=== PATIENT | female | born 1990 | race Caucasian/White ===

== ENCOUNTER → 2023-09-10 12:00 | Outpatient (CLI) | payer BC, SELFPAY ==
[2023-09-10 18:34] LABS: Basophils # 0.1 K/mm3 (0-0.2); Basophils % 0.6 % (0.1-2.0); Eosinophils # 0.4 K/mm3 (0.0-0.4); Eosinophils % 4.1 % (0.1-12.0); Hematocrit 43.4 % (37.0-47.0); Hemoglobin 14.5 g/dL (12.2-16.2); Lymphocytes # 2.9 K/mm3 (0.7-4.5); Lymphocytes % 32.7 % (10-50); Mean Corpuscular HGB Conc 33.5 g/dL (31.8-35.4); Mean Corpuscular Hemoglobin 31.8 pg (27.0-31.2); Mean Corpuscular Volume 94.9 fl (81-99); Mean Platelet Volume 8.5 fl (7.4-10.4); Monocytes # 0.6 K/mm3 (0.1-1.0); Monocytes % 6.4 % (1.7-9.3); Neutrophils % 56.2 % (37.0-80.0); Platelet Count 321 K/mm3 (142-424); Red Blood Count 4.57 M/mm3 (4.20-5.40); Red Cell Distribution Width 12.9 % (11.5-17.5); White Blood Count 8.8 K/mm3 (4.8-10.8)
[2023-09-10 18:44] LABS: Alanine Aminotransferase 21 U/L (12-78); Albumin Level 4.5 g/dl (3.5-5.0); Albumin/Globulin Ratio 1.4 (1.1-1.8); Alkaline Phosphatase 67 U/L (38-126); Anion Gap 12.1 mEq/L (5-15); Aspartate Amino Transferase 34 U/L (14-36); Bilirubin,Total 0.5 mg/dl (0.2-1.3); Blood Urea Nitrogen 8 mg/dl (7-17); Calcium 9.3 mg/dl (8.4-10.2); Carbon Dioxide 24 mmol/L (22.0-30.0); Chloride 105 mmol/L (98-107); Cholesterol 256 mg/dl (140-200); Estimated Glomerular Filt Rate 71 ml/min (>60); GFR (African American) 86 ML/MIN (>60); Globulin 3.3 g/dL (1.3-3.2); Glucose 88 mg/dl (74-100); Potassium 4.1 mmoL/L (3.5-5.1); Sodium 137 mmol/L (136-145); Total Protein,Serum 7.8 g/dl (6.3-8.2); Triglycerides 77 mg/dl (30-150); VLDL Cholesterol 15 mg/dL (0-40)
[2023-09-10 18:52] LABS: Chol/HDL Ratio 2.4 (1-3.5); HDL Cholesterol 108 mg/dl (40-60)
[2023-09-10 18:56] LABS: Direct LDL Cholesterol 120.32 mg/dL (100-129)
[2023-09-10 19:01] LABS: Free T4 (Free Thyroxine) 1.17 ng/dl (0.78-2.19)
[2023-09-10 19:02] LABS: 25-OH Vitamin D, Total 52.1 ng/mL (30-100)
[2023-09-10 19:34] LABS: Vitamin B12 643 pg/mL (239-931)
[2023-09-10 20:43] LABS: Hemoglobin A1C 4.8 % (4.0-6.0)
== END ==
PROVIDERS: PCP Nurse Practitioner Family; Visit Provider Nurse Practitioner Family
DX: F41.9 Anxiety disorder, unspecified (principal); R53.83 Other fatigue; Z13.220 Encounter for screening for lipoid disorders; Z13.1 Encounter for screening for diabetes mellitus; Z79.899 Other long term (current) drug therapy
CPT/HCPCS: 80053; 80061; 82306; 82607; 83036; 84439; 84443; 85025

== ENCOUNTER → 2023-10-01 12:06 | Outpatient (CLI) | payer BC, SELFPAY ==
[2023-10-01 12:28] LABS: Basophils # 0.1 K/mm3 (0-0.2); Basophils % 0.6 % (0.1-2.0); Eosinophils # 0.2 K/mm3 (0.0-0.4); Eosinophils % 2.2 % (0.1-12.0); Hematocrit 41.8 % (37.0-47.0); Hemoglobin 14.1 g/dL (12.2-16.2); Lymphocytes # 2.3 K/mm3 (0.7-4.5); Mean Corpuscular HGB Conc 33.8 g/dL (31.8-35.4); Mean Corpuscular Hemoglobin 31.1 pg (27.0-31.2); Mean Platelet Volume 7.9 fl (7.4-10.4); Monocytes # 0.4 K/mm3 (0.1-1.0); Monocytes % 4.9 % (1.7-9.3); Neutrophils # 6.1 K/mm3 (1.8-7.8); Neutrophils % 67.3 % (37.0-80.0); Platelet Count 306 K/mm3 (142-424); Red Blood Count 4.54 M/mm3 (4.20-5.40); Red Cell Distribution Width 12.6 % (11.5-17.5)
[2023-10-01 12:34] LABS: Activated Partial Thrombo Time 26.8 seconds (22.8-30.6); INR 0.97 (0.9-1.1); Prothrombin Time 10.5 seconds (10.1-12.5)
[2023-10-01 13:08] LABS: Blood Urea Nitrogen 10 mg/dl (7-17); Calcium 9.2 mg/dl (8.4-10.2); Carbon Dioxide 23 mmol/L (22.0-30.0); Chloride 105 mmol/L (98-107); Estimated Glomerular Filt Rate 63 ml/min (>60); GFR (African American) 76 ML/MIN (>60); Glucose 83 mg/dl (74-100); Sodium 136 mmol/L (136-145)
== END ==
LOC: LAB 12:07
PROVIDERS: PCP Nurse Practitioner Family; Referring Provider Plastic Surgery; Visit Provider Plastic Surgery
DX: Z01.812 Encounter for preprocedural laboratory examination (principal)
CPT/HCPCS: 36415; 80048; 85025; 85610; 85730

== ENCOUNTER 2024-03-17 13:45 | Emergency (ER) | payer BC, SELFPAY ==
[2024-03-17 13:50] VITALS: BP 125/76; PULSE 80; RESP 20; TEMP 36.6; O2SAT 97; BMI 23.8
--- NOTE | 2024-03-17 13:57 | EXP.UTC ---
Discharge Plan Disposition Patient Disposition: Home, Self-Care Condition: Good Prescriptions Prescriptions: New azithromycin 250 mg tablet See Rx Instructions .ROUTE .COMPLEX Qty: 6 0RF Rx Instructions: For 250 mg dose pack: take 500 mg today (day 1), then 250 mg for 4 days (days 2-5) utozauetazmtcoe-mzgzmfilb-TW [Bromfed DM] 2-30-10 mg/5 mL syrup 10 ml PO Q6H PRN (Reason: cold symptoms) Qty: 200 0RF albuterol sulfate 90 mcg/actuation aerosol powdr breath activated 2 inh inhalation Q6H PRN (Reason: shortness of breath or wheezing) Qty: 1 0RF No Action etonogestrel-ethinyl estradiol 0.12-0.015 mg/24 hr ring 1 vag ring vaginal ONCE sertraline 25 mg tablet 25 mg PO DAILY Rx Instructions: TAKE 1 TABLET BY MOUTH EVERY DAY Referrals Follow up/Referrals: Soila Wan APRN [Primary Care Provider] - See instructions Clinical Impressions Clinical Impression: Upper respiratory tract infection Qualifiers: URI type: unspecified URI Qualified Code(s): J06.9 - Acute upper respiratory infection, unspecified Instructions Patient Instructions: DI for Acute Bronchitis Discharge ED Provider: Lexie John [facility] General Stated complaint: cough, congestion, pain while coughing Mode of Arrival: Ambulatory Source of Information: Patient Limitations: No Limitations Time Seen by Provider: 03/17/24 13:54 Description of Symptoms (Recalled from Triage Doc. by RN): PATIENT C/O WET COUGH X 1-2 WEEKS HEENT Symptoms (Recalled from RN notes): No Resp Symptoms (Recalled from RN notes): Yes Skin Symptoms (Recalled from RN notes): No MS Symptoms (Recalled from RN notes): No Functional Status (Recalled from RN notes): WNL History of Present Illness Provider Complaint: Pt reports that she has had some sinus drainage and cough for the last 2 weeks. She states that the cough has gotten to where she is coughing up phlegm. Related Data Home Medications Medication Instructions Recorded Confirmed etonogestrel 0.12 mg-ethinyl 1 vag ring vaginal ONCE 09/10/23 03/17/24 estradiol 0.015 mg/24 hr vaginal ring sertraline 25 mg tablet 25 mg PO DAILY 06/12/24 06/12/24 Previous Rx's Medication Instructions Recorded albuterol sulfate 90 mcg/actuation 2 inh inhalation Q6H PRN shortness 03/17/24 breath activated powder inhaler of breath or wheezing #1 ea azithromycin 250 mg tablet See Rx Instructions PO .COMPLEX #6 03/17/24 tabs sddgiijfezplkul-bhzpvesavaonrvj-GB 10 ml PO Q6H PRN cold symptoms 03/17/24 2 mg-30 mg-10 mg/5 mL oral syrup #200 mL (Bromfed DM) Allergies Allergy/AdvReac Type Severity Reaction Status Date / Time No Known Allergies Allergy Verified 10/07/23 08:53 Worker's Comp Is this a Worker's Comp case?: No [facility] Disclaimer: The information contained in this section may have been updated after the patient was seen, as this information can be updated by other users. Medical History Anxiety Cervical cancer Surgical History H/O lumpectomy History of tonsillectomy and adenoidectomy Family History Other Cancer Hyperlipidemia Social History Smoking Status: Never smoker alcohol intake: current alcohol intake frequency: 0-2 drinks per day current occupational status: employed Travel in the last 8 weeks: None ROS Obtained: Yes All systems reviewed & no additional complaints except as documented Constitutional Constitutional: Reports system reviewed and no additional complaints, except as documented and Reports malaise Eyes Eyes: Reports system reviewed and no additional complaints, except as documented ENT Ears, Nose, Mouth, and Throat: Reports system reviewed and no additional complaints, except as documented, Reports nasal discharge and Reports post nasal drip Cardiovascular Cardiovascular: Reports system reviewed and no additional complaints, except as documented Respiratory Respiratory: Reports system reviewed and no additional complaints, except as documented and Reports cough with sputum production Gastrointestinal Gastrointestingal: Reports system reviewed and no additional complaints, except as documented Genitourinary Female Genitourinary: Reports system reviewed and no additional complaints, except as documented Musculoskeletal Musculoskeletal: Reports system reviewed and no additional complaints, except as documented Integumentary/Breasts Skin/Breast: Reports system reviewed and no additional complaints, except as documented Neurologic Neurologic: Reports system reviewed and no additional complaints, except as documented Endocrine Endocrine: Reports system reviewed and no additional complaints, except as documented Hematologic/Lymphatic Henatologic/Lymphatic: Reports system reviewed and no additional complaints, except as documented Allergic/Immunologic Allergic/Immunologic: Reports system reviewed and no additional complaints, except as documented Physical Exam General General appearance: alert and in no apparent distress Head Head exam: atraumatic and normocephalic Eye Eye exam: Present normal appearance ENT ENT exam: Present mucous membranes moist Expanded ENT Exam External ear exam: Present normal external inspection Nasal speculum exam: Bilateral: other (clear drainage) Mouth exam: Present normal external inspection Teeth exam: Present normal inspection Throat exam: Present normal inspection Neck Neck exam: Present normal inspection Chest Chest inspection: Present normal inspection and symmetric chest wall rise Respiratory Respiratory exam: Present other Expanded Respiratory Exam Location: Right: wheezes and rales, Upper: wheezes and Lower: rales Cardiovascular Cardiovascular exam: Present regular rate and normal rhythm Abdominal Exam Abdominal exam: Present soft and normal bowel sounds Back Exam Back exam: Present normal inspection Neurological Exam Neurological exam: Present alert and oriented X3 Psychiatric Psychiatric exam: Present normal affect and normal mood Skin Skin exam: Present warm, dry and intact Lymphatic Lymphatic Findings: no adenopathy Medical Decision Making Kai Inquiry Pt receiving controlled substance: No Kai was queried for this patient: No Vital Signs: 03/17/24 13:50 Temperature 97.8 F Temperature Source Oral Pulse Rate [Left Brachial] 80 Respiratory Rate 20 Blood Pressure [Left Arm] 125/76 Blood Pressure Mean [Left Arm] 92 Blood Pressure Source [Left Arm] Automatic Cuff Blood Pressure Position [Left Arm] Sitting 02 Sat by Pulse Oximetry 97 Oxygen Delivery Method Room Air
[2024-03-17 14:05] VITALS: BP 125/76; PULSE 80; RESP 20; TEMP 36.6; O2SAT 97
== END 2024-03-17 14:07 | disposition home or self-care (01) ==
PROVIDERS: Emergency Provider Nurse Practitioner Family; PCP Nurse Practitioner Family
DX: R05.9 Cough, unspecified (principal); J06.9 Acute upper respiratory infection, unspecified; R09.81 Nasal congestion
CPT/HCPCS: 99204; 99212; G0463

== ENCOUNTER 2024-11-07 10:24 | Emergency (ER) | payer MEDICAID, SELFPAY ==
[2024-11-07] VITALS (10 sets, daily range): BP systolic 96–123; BP diastolic 51–94; PULSE 94–116; RESP 19–20; TEMP 36.6–37.1; O2SAT 95–100; BMI 28.7
--- NOTE | 2024-11-07 11:32 | HMH.EDGENADL ---
Discharge Plan Disposition Patient Disposition: Home, Self-Care Prescriptions Prescriptions: New prednisone 20 mg tablet 40 mg PO DAILY 5 Days Qty: 10 0RF famotidine [Pepcid] 20 mg tablet 20 mg PO BID 7 Days Qty: 14 0RF No Action aspirin [Aspir-81] 81 mg Tablet,Delayed Release (Dr/Ec) 81 mg PO DAILY 1 mg Tablet 1 tab PO DAILY Referrals Follow up/Referrals: Soila Wan APRN [Primary Care Provider] - See instructions Activity Restrictions/Add. Instructions Additional Instructions/Restrictions: Call your family doctor to establish care for this visit to the emergency department and schedule follow-up within 48 hours to ensure improvement. If you have any worsening of your condition or any other concerning signs or symptoms, return to the emergency department or your primary care doctor for further evaluation. Clinical Impressions Clinical Impression: Rash Instructions Patient Instructions: DI for Skin Abscess Print Language Print Language: Romanian Discharge ED Provider: Alex Sinclair General Adult HPI General Chief complaint: Skin/Abscess/Foreign Body Stated complaint: hives all over body, 22 weeks Time Seen by Provider: 11/07/24 10:54 Mode of Arrival: Ambulatory Source of Information: Patient Limitations: No Limitations Description of Symptoms (Recalled from ER Triage Doc. by RN): pt has a hive like rash all over her body. has been taking benadryl and claritin with no relief. currently 22 weeks History of Present Illness HPI narrative: Please note that above description of symptoms, in this electronic medical record under categorization of recalled from ER triage doctor by RN are reflective of an initial nursing assessment, however, is not reflective of my full history and physical exam that was personally taken and clarified. Consequentially, this preceding description of symptoms, which may include the patient's categorized chief complaint in the EMR, do not reflect my personal clinical impression, and the ultimate description of history of present illness and patient stated complaints should be deferred to this section of the note. Unless stated otherwise or congruent with this section of the note, additional signs, symptoms, or incongruence should be interpreted as inaccurate with my clinical impression. Related Data Home Medications ?Medication ?Instructions ?Recorded ?Confirmed aspirin 81 mg tablet,delayed 81 mg PO DAILY 11/07/24 11/07/24 release gmvccxro-xab-Ih-FA 1 mg 1 tab PO DAILY 11/07/24 11/07/24 tablet Previous Rx's ?Medication ?Instructions ?Recorded famotidine 20 mg tablet (Pepcid) 20 mg PO BID 1 week #14 tabs 11/07/24 prednisone 20 mg tablet 40 mg (2 x 20 mg) PO DAILY 5 days 11/07/24 #10 tabs Allergies Allergy/AdvReac Type Severity Reaction Status Date / Time No Known Allergies Allergy Verified 10/07/23 08:53 [facility] Disclaimer: The information contained in this section may have been updated after the patient was seen, as this information can be updated by other users. Medical History Anxiety Cervical cancer Surgical History H/O lumpectomy History of tonsillectomy and adenoidectomy Family History Other Cancer Hyperlipidemia Social History Smoking Status: Never smoker alcohol intake: current alcohol intake frequency: 0-2 drinks per day current occupational status: employed Travel in the last 8 weeks: None Have you lived/traveled outside [place] in past 30 days?: No Contact w/someone who lives/traveled outside [place] past 30 days?: No Exposure to someone with infectious disease in past 14 days?: No Do you have a fever (greater than 100.4 F or 38 C)?: No Have you tested positive for COVID-19: No Exposed to someone with COVID-19 in past 14 days?: No Do you have a sore throat?: No Do you have a cough?: No Do you have any weakness?: No Do you have any diarrhea?: No Are you experiencing any unusual bleeding?: No Do you have any muscle aches/pain?: No Do you have any abdominal pain?: No Are you experiencing loss of taste or smell?: No ROS Obtained: Yes All systems reviewed & no additional complaints except as documented Physical Exam General General appearance: alert Head Head exam: atraumatic and normocephalic Eye Eye exam: Present normal appearance, PERRL and EOMI Neck Neck exam: Present normal inspection, full ROM and trachea midline Respiratory Respiratory exam: Absent respiratory distress, wheezes, stridor, accessory muscle use or prolonged expiratory phase Cardiovascular Cardiovascular exam: Present other (Pulses equal symmetric in upper and lower extremities) Abdominal Exam Abdominal exam: Present soft; Absent distention, tenderness or pulsatile mass Extremities Exam Extremities exam: Absent edema Neurological Exam Neurological exam: Present alert, oriented X3 and CN II-XII intact; Absent motor sensory deficit Skin Skin exam: Present warm, dry, rash and erythema; Absent diaphoresis Medical Decision Making Medical Records Medical records reviewed: Yes I reviewed the patient's medical records. Screening: Per USPSTF and CDC recommendations, given the prevalence of disease in our region, it is our hospital?s policy to screen for HIV and viral Hepatitis for all patients aged 18 and over and those with ongoing risk factors. Kai Inquiry Pt receiving controlled substance: No Kai was queried for this patient: No Vital Signs: 11/07/24 10:25 11/07/24 10:35 11/07/24 11:00 Temperature 98.7 F Temperature Source Oral Pulse Rate 114 H 114 H Pulse Rate [Left] 114 H Respiratory Rate 20 Blood Pressure 123/88 101/78 L Blood Pressure [Left Arm] 123/88 Blood Pressure Mean [Left Arm] 99 02 Sat by Pulse Oximetry 98 98 99 Oxygen Delivery Method Room Air Room Air Room Air 11/07/24 11:30 11/07/24 12:52 11/07/24 13:00 Temperature Temperature Source Pulse Rate 113 H 94 H 116 H Pulse Rate [Left] Respiratory Rate Blood Pressure 96/66 L 104/65 L 107/51 L Blood Pressure [Left Arm] Blood Pressure Mean [Left Arm] 02 Sat by Pulse Oximetry 100 95 100 Oxygen Delivery Method Room Air Room Air Room Air 11/07/24 13:30 11/07/24 14:30 Temperature Temperature Source Pulse Rate 105 H 103 H Pulse Rate [Left] Respiratory Rate Blood Pressure 110/65 116/81 Blood Pressure [Left Arm] Blood Pressure Mean [Left Arm] 02 Sat by Pulse Oximetry 100 100 Oxygen Delivery Method Room Air Room Air Lab Data Lab Results 11/07/24 11:35: WBC 14.7 H, RBC 4.03 L, Hgb 12.5, Hct 36.7 L, MCV 91.1, MCH 31.0, MCHC 34.1, RDW 13.1, Plt Count 277, MPV 9.9, Neut % (Auto) 86.2 H, Lymph % (Auto) 10.7, [place] % (Auto) 1.1 L, Eos % (Auto) 0.5, Baso % (Auto) 0.1, Neut # (Auto) 12.7 H, Lymph # (Auto) 1.6, [place] # (Auto) 0.2, Eos # (Auto) 0.1, Baso # (Auto) 0.0, Sodium 133 L, Potassium 3.5, Chloride 106, Carbon Dioxide 17 L, Anion Gap 13.5, BUN 7, Creatinine 0.60, Estimated Creat Clear 181, Estimated GFR 113, Est GFR ( Amer) 137, Glucose 149 H, Calcium 9.0, Total Bilirubin 0.3, AST 28, ALT 22, Alkaline Phosphatase 64, Total Protein 6.5, Albumin 3.9, Globulin 2.6, Albumin/Globulin Ratio 1.5, HCG, Quant 7199 H 11/07/24 11:55: Blood Type O Negative, Antibody Screen Negative 11/07/24 11:35 11/07/24 11:35 Orders (Tests/Meds): ED MEDICATIONS Discontinued Medications Generic Name Dose Route Start Last Admin Trade Name Freq PRN Reason Stop Dose Admin Prednisone 40 mg 11/07/24 14:12 11/07/24 14:39 Prednisone 20mg Tab PO 11/07/24 14:13 40 mg ONCE ONE Administration ORDERS Category Date Time Status Type and Screen Stat BBK 11/07/24 11:55 Completed CXR 2 view (NOT portable) [XR chest 2V] Stat Exams 11/07/24 11:35 Completed CBC w/Auto Diff [Complete Blood Count Auto Diff] Stat Lab 11/07/24 11:35 Completed CMP [Comprehensive Metabolic Panel] Stat Lab 11/07/24 11:35 Completed HCG,Quantitative Stat Lab 11/07/24 11:35 Completed Medical Decision Narrative: 34-year-old female who is 22 weeks presenting with rash. No environmental changes. States that she has had all of her labs done and resulted, she is O-, baby's Rh factor on recent labs also negative. Patient states that about 4 days prior to this she started having a rash on her abdomen. Urticarial, itchy. Has since spread to her trunk, bilateral upper extremities, bilateral lower extremities, palms, face, neck. Has been taking Benadryl without relief. Called her MACHINE HELPER, they recommended she come to the emergency department for hematologic workup. No vaginal discharge, bleeding, or other gynecologic abnormality. Other symptoms include bronchial cough this been going on for weeks, but nothing is changed in that regard. History was obtained via conversation with patient. On arrival, patient hemodynamically stable, alert, oriented x4, appropriate, GCS 15, moving all extremities spontaneously, pupils equal and reactive to light. Full physical exam performed and significant for patient has rash on her trunk, upper and lower extremities, neck, face. No oral lesions, no ocular lesions. Hands are swollen and red, but no obvious rash on palms. States that they are itching and bothering her. Differential includes viral exanthem, rh minimization, environmental, among others. Patient was given 40 mg oral prednisone For symptomatic management and correction of underlying abnormalities. Workup independently interpreted and significant for leukocytosis 14.7 with elevated neutrophils and monocytes. Patient's chemistry with mild hyponatremia 133. hCG 7100. On independent interpretation of imaging, no acute cardiopulmonary species on chest x-ray. See radiology read for full review of final results. On reevaluation, patient states she is feeling same as she did on arrival. She asked me to reach out to her MACHINE HELPER on-call at [facility]. I did called, no response. They stated they would page the MACHINE HELPER on-call for further discussion. Called around 3 PM. Recommended Pepcid, steroid, outpatient follow-up. I feel is appropriate. Given patient presentation, workup, history, this most likely represents viral rash and bronchitis. Because patient at baseline without signs or symptoms of clinical decompensation, deemed appropriate for discharge. Results were relayed to patient who voiced understanding and were agreeable to outpatient management and follow up. I discussed my clinical impression with patient and answered all questions. At this time, the evidence for any other entities in the differential is insufficient to warrant any further testing or ED observation. This was explained as well. Advisory was given that persistent or worsening symptoms require further evaluation. I confirmed the understanding of this discussion. [employer] disclaimer Much of this encounter note is an electronic central scheduler spoken language to printed text. Electronic central scheduler of the spoken language may permit errors. Although I have reviewed the note, some errors may still exist. Critical Care Critical Care Time Critical Care Time: No
--- NOTE | 2024-11-07 11:35 | XR_ITS ---
PROCEDURE INFORMATION: Exam: XR Chest Exam date and time: 11/07/2024 11:39 AM Age: 34 years old Clinical indication: Cough; Additional info: Cough, new rash, productive sputum TECHNIQUE: Imaging protocol: Radiologic exam of the chest. Views: 2 views. Total images: 2 COMPARISON: No relevant prior studies available. FINDINGS: Lungs: No focal pneumonia. Pleural spaces: No pleural effusions. No evidence of pneumothorax. Heart/Mediastinum: The heart is not enlarged. Diaphragm: There is nonspecific elevation of the right hemidiaphragm. Bones/joints: Unremarkable. IMPRESSION: No focal pneumonia.
[2024-11-07 12:13] LABS: Basophils % 0.1 % (0.1-2.0); Eosinophils # 0.1 K/mm3 (0.0-0.4); Eosinophils % 0.5 % (0.1-12.0); Hematocrit 36.7 % (37.0-47.0); Hemoglobin 12.5 g/dL (12.2-16.2); Lymphocytes # 1.6 K/mm3 (0.7-4.5); Lymphocytes % 10.7 % (10-50); Mean Corpuscular HGB Conc 34.1 g/dL (31.8-35.4); Mean Corpuscular Volume 91.1 fl (81-99); Mean Platelet Volume 9.9 fl (7.4-10.4); Monocytes # 0.2 K/mm3 (0.1-1.0); Monocytes % 1.1 % (1.7-9.3); Neutrophils # 12.7 K/mm3 (1.8-7.8); Neutrophils % 86.2 % (37.0-80.0); Platelet Count 277 K/mm3 (142-424); Red Blood Count 4.03 M/mm3 (4.20-5.40); Red Cell Distribution Width 13.1 % (11.5-17.5); White Blood Count 14.7 K/mm3 (4.8-10.8)
[2024-11-07 12:22] LABS: Chloride 106 mmol/L (98-107)
[2024-11-07 12:23] LABS: Albumin Level 3.9 g/dl (3.5-5.0); Potassium 3.5 mmoL/L (3.5-5.1); Sodium 133 mmol/L (136-145)
[2024-11-07 12:25] LABS: Blood Urea Nitrogen 7 mg/dl (7-17); Creatinine Clearance Estimated 181 mL/min (50-200); Estimated Glomerular Filt Rate 113 ml/min (>60); GFR (African American) 137 ML/MIN (>60)
[2024-11-07 12:26] LABS: Alanine Aminotransferase 22 U/L (12-78); Albumin/Globulin Ratio 1.5 (1.1-1.8); Alkaline Phosphatase 64 U/L (38-126); Anion Gap 13.5 mEq/L (5-15); Aspartate Amino Transferase 28 U/L (14-36); Bilirubin,Total 0.3 mg/dl (0.2-1.3); Carbon Dioxide 17 mmol/L (22.0-30.0); Globulin 2.6 g/dL (1.3-3.2); Glucose 149 mg/dl (74-100); Total Protein,Serum 6.5 g/dl (6.3-8.2)
[2024-11-07 12:43] LABS: HCG,Quantitative 7199 mIU/ml (0-5.42)
--- NOTE | 2024-11-07 14:18 | PC.NURSE ---
BELINDA LOMBARDI ON PHONE WITH [facility]
[2024-11-07] MEDS: predniSONE 20MG TAB 40 MG PO (14:39)
--- NOTE | 2024-11-07 15:10 | PC.NURSE ---
spoke with pt OB, who states no further interventions needed in the ER
== END 2024-11-07 15:38 | disposition home or self-care (01) ==
PROVIDERS: Emergency Provider Emergency Medicine; PCP Nurse Practitioner Family
DX: R21 Rash and other nonspecific skin eruption (principal); Z33.1 Pregnant state, incidental; Z3A.22 22 weeks gestation of pregnancy
CPT/HCPCS: 36415; 71046; 80053; 84702; 85025; 86850; 99283